=== PATIENT | female | born 1980 | race Caucasian/White ===

== ENCOUNTER 2025-02-17 10:17 | Outpatient (CLI) | payer OTHER ==
[~2025-02-17] VITALS: Ht 170.2 cm; Wt 133.0 kg
[~2025-02-17 10:17] MED LIST: ALBUTEROL SULFATE 2.5 MG/0.5 ML INH CONCENTRATE NEB SOLN INH PRN; EPINEPHrine INJ 1 MG/ML 1ML AMP IM PRN; diphenhydrAMINE 50 MG/ML VIAL IV PRN
[2025-02-17] MEDS: diphenhydrAMINE 25MG PO PRIOR TO INFUSION PO ONE (10:54)
[2025-02-17] MEDS: ACETAMINOPHEN 650MG PO PRIOR TO INFUSION PO ONE (10:54)
[2025-02-17] MEDS: dexameTHASONE 20 MG IV PRIOR TO INFUSION IV ONE (10:54)
[2025-02-17] MEDS: IRON SUCROSE 300 MG in NS 250 ML IV ONE (11:04)
[2025-02-17 12:44] VITALS: BP 132/64; O2SAT 99
== END 2025-03-03 13:20 | disposition home or self-care (01) ==
LOC: M INFU 10:17
PROVIDERS: ATTEND Physician Assistant Medical
DX: D50.9 Iron deficiency anemia, unspecified (principal)
CPT/HCPCS: 96365; 96366; 96375; J1100; J1756

== ENCOUNTER → 2025-03-03 | Outpatient (CLI) | payer OTHER ==
[~2025-03-03] VITALS: Ht 170.2 cm; Wt 131.3 kg
[2025-03-03 10:45] VITALS: BP 166/85; O2SAT 99
[2025-03-03] MEDS: IRON SUCROSE 300 MG in NS 250 ML OVER 90 MIN. IV ONE (11:25)
[2025-03-03] MEDS: ACETAMINOPHEN 650 MG PO ONE (11:25)
[2025-03-03 13:20] VITALS: BP 116/57; O2SAT 100
== END ==
LOC: M INFU 10:37
PROVIDERS: ATTEND Physician Assistant Medical
DX: D50.9 Iron deficiency anemia, unspecified (principal)
CPT/HCPCS: 96365; 96366; J1756

== ENCOUNTER → 2025-04-05 | Outpatient (REF) | payer OTHER ==
[2025-04-05 14:34] LABS: PLATELET COUNT, AUTOMATED 275 10^3/uL (150-450)
[2025-04-05 14:36] LABS: IRON (FE) 84.0 UG/DL (50-170); PERCENT SATURATION 23.5 % (13.2-45.0)
[2025-04-05 14:38] LABS: TOTAL 25(OH) VITAMIN D 19.8 NG/ML (20.0-100.0); VITAMIN B12 LEVEL 1041.0 PG/ML (211-911)
== END ==
LOC: M SFHCADAM 08:24
PROVIDERS: ATTEND Physician Assistant Medical
DX: D50.8 Other iron deficiency anemias (principal); E55.9 Vitamin D deficiency, unspecified; E53.8 Deficiency of other specified B group vitamins

== ENCOUNTER → 2025-07-13 | Outpatient (REF) | payer OTHER ==
[2025-07-13 14:02] LABS: PLATELET COUNT, AUTOMATED 330 10^3/uL (150-450)
[2025-07-13 14:08] LABS: IRON (FE) 69.0 UG/DL (50-170); PERCENT SATURATION 19.4 % (13.2-45.0)
[2025-07-13 14:12] LABS: VITAMIN B12 LEVEL 1198.0 PG/ML (211-911)
[2025-07-13 14:15] LABS: ESTIMATED AVERAGE GLUCOSE 94.0 MG/DL (60-110)
== END ==
LOC: M SFHCADAM 08:07
PROVIDERS: ATTEND Physician Assistant Medical
DX: E53.8 Deficiency of other specified B group vitamins (principal); E55.9 Vitamin D deficiency, unspecified; D50.8 Other iron deficiency anemias; E66.01 Morbid (severe) obesity due to excess calories